=== PATIENT | female | born 1980 | race Caucasian/White ===

== ENCOUNTER 2018-08-04 16:03 | Outpatient (CLI) | payer MEDICAID, SELFPAY ==
[2018-08-04 17:26] LABS: TSH (W/Ref FT4) 4.43 uIU/mL (0.358-3.74)
[2018-08-04 17:48] LABS: FREE T4 1.01 ng/dL (0.76-1.46)
== END 2018-08-04 16:23 ==
PROVIDERS: PCP Nurse Practitioner Family; Visit Provider Nurse Practitioner Family
DX: C73 Malignant neoplasm of thyroid gland (principal)
CPT/HCPCS: 36415; 84439; 84443

== ENCOUNTER 2019-07-25 15:55 | Outpatient (CLI) | payer MEDICAID, SELFPAY ==
[2019-07-25 17:28] LABS: Anion Gap 8.9 mmol/L (3-11); BUN 16 mg/dL (7-18); CO2 26.1 mmol/L (21.0-32.0); CREATININE 0.85 mg/dL (0.55-1.02); Calcium 8.2 mg/dL (8.5-10.1); Calculated LDL 96 mg/dL; Chloride 104 mmol/L (98-107); Cholesterol 181 mg/dL (50-200); Glucose 92 mg/dL (70-100); HDL Cholesterol 46 mg/dL (40-60); Sodium 139 mmol/L (136-145); TSH (W/Ref FT4) 0.02 uIU/mL (0.36-3.74); Triglyceride 196 mg/dL (30-150)
[2019-07-25 17:45] LABS: FREE T4 1.36 ng/dL (0.76-1.46)
== END 2019-07-25 16:15 ==
PROVIDERS: PCP Nurse Practitioner Family; Visit Provider Nurse Practitioner Family
DX: C73 Malignant neoplasm of thyroid gland (principal); Z13.220 Encounter for screening for lipoid disorders; Z13.1 Encounter for screening for diabetes mellitus
CPT/HCPCS: 36415; 80048; 80061; 84439; 84443

== ENCOUNTER 2020-10-11 10:41 | Outpatient (REF) | payer OTHER, SELFPAY ==
[2020-10-11 20:38] LABS: HCT 41.6 % (36.0-46.0); HGB 14.2 g/dL (11.2-15.7); MCH 30.7 pg (27.0-33.0); MCHC 34.1 % (32.0-36.0); MPV 9.7 fL (8.0-11.0); Platelet Count 283 10^3/uL (130-400); RBC 4.62 10^6/uL (3.93-5.22); RDW 11.7 % (11.7-14.6); RDW-SD 38.5 fL
[2020-10-11 20:50] LABS: Anion Gap 7.8 mmol/L (3-11); BUN 16 mg/dL (7-18); CO2 25.2 mmol/L (21.0-32.0); CREATININE 0.85 mg/dL (0.55-1.02); Calcium 8.5 mg/dL (8.5-10.1); Chloride 105 mmol/L (98-107); Glucose 93 mg/dL (74-106); Potassium 4.3 mmol/L (3.5-5.1); Sodium 138 mmol/L (136-145); TSH (W/Ref FT4) 0.01 uIU/mL (0.36-3.74)
[2020-10-11 21:15] LABS: Vitamin D 25 Total 37.1 ng/ml (30-100)
[2020-10-11 21:16] LABS: FREE T4 2.09 ng/dL (0.76-1.46)
[2020-10-11 21:27] LABS: Calculated LDL 144 mg/dL (<100); Cholesterol 205 mg/dL (<200); HDL Cholesterol 52 mg/dL (40-60); Triglyceride 48 mg/dL (<150)
== END 2020-10-11 11:01 ==
LOC: NCHCN 10:41
PROVIDERS: PCP Nurse Practitioner Family; Visit Provider Nurse Practitioner Family
DX: E78.1 Pure hyperglyceridemia (principal); C73 Malignant neoplasm of thyroid gland; E55.9 Vitamin D deficiency, unspecified; Z00.00 Encounter for general adult medical examination without abnormal findings
CPT/HCPCS: 80048; 80061; 82306; 85027; 84439; 84443

== ENCOUNTER 2020-11-26 12:27 | Outpatient (REF) | payer OTHER, SELFPAY ==
[2020-11-26 20:13] LABS: TSH (W/Ref FT4) 0.02 uIU/mL (0.36-3.74)
[2020-11-26 23:05] LABS: FREE T4 1.44 ng/dL (0.76-1.46)
== END 2020-11-26 12:47 ==
LOC: NCHCN 12:27
PROVIDERS: PCP Nurse Practitioner Family; Visit Provider Nurse Practitioner Family
DX: C73 Malignant neoplasm of thyroid gland (principal)
CPT/HCPCS: 84439; 84443

== ENCOUNTER 2021-01-07 11:58 | Outpatient (REF) | payer OTHER, SELFPAY ==
[2021-01-07 13:14] LABS: Bilirubin Negative (Negative); Blood Negative (Negative); Clarity Clear (Clear); Glucose Negative (Negative); Ketones Negative (Negative); Leukocyte Esterase Trace (Negative); Nitrite Negative (Negative); Urobilinogen 0.2 EU/dL (Up TO 0.2)
[2021-01-07 13:24] LABS: Bacteria Few HPF (Negative); C & S Indicated? C&S Done As Ordered; Casts Negative LPF (Negative); Crystals Negative HPF (Negative); Epithelial Cells Few HPF (Negative); Mucus Negative (Negative); WBC 20-50 HPF (0-5)
[2021-01-09 10:02] LABS: HIV-1/2 Ag & Ab Screen Negative (Negative)
[2021-01-09 10:38] LABS: Syphilis Serology (RPR) Negative (Negative)
[2021-01-09 14:20] LABS: Chlamydia Result Negative (Negative); GC Result Negative (Negative)
[2021-01-10 10:41] LABS: HSV Type 1 Ab, IgG Negative (Negative); HSV Type 2 Ab, IgG Negative (Negative)
== END 2021-01-07 11:59 | disposition home or self-care (01) ==
LOC: NCHCN 11:58
PROVIDERS: PCP Nurse Practitioner Family; Visit Provider Nurse Practitioner Family
DX: N89.8 Other specified noninflammatory disorders of vagina (principal); R30.0 Dysuria; R21 Rash and other nonspecific skin eruption; Z11.3 Encounter for screening for infections with a predominantly sexual mode of transmission; Z11.4 Encounter for screening for human immunodeficiency virus [HIV]; Z11.59 Encounter for screening for other viral diseases; A60.00 Herpesviral infection of urogenital system, unspecified
CPT/HCPCS: 87389; 87491; 87591; 81003; 81015; 86592; 86695; 86696; 87086; 87480; 87510; 87660

== ENCOUNTER 2021-01-21 16:41 | Outpatient (REF) | payer OTHER, SELFPAY ==
[2021-01-23 13:49] LABS: HSV 1 DNA Result Negative (Negative); HSV 2 DNA Result Negative (Negative)
== END 2021-01-21 16:42 | disposition home or self-care (01) ==
LOC: LBN 16:41
PROVIDERS: PCP Nurse Practitioner Family; Visit Provider Nurse Practitioner Family
DX: N90.9 Noninflammatory disorder of vulva and perineum, unspecified (principal); Z11.59 Encounter for screening for other viral diseases
CPT/HCPCS: 87529

== ENCOUNTER 2021-11-06 18:58 | Outpatient (REF) | payer OTHER, SELFPAY ==
[2021-11-06 15:03] LABS: TSH (W/Ref FT4) 16.47 uIU/mL (0.36-3.74)
[2021-11-06 16:07] LABS: FREE T4 0.99 ng/dL (0.76-1.46)
== END 2021-11-06 18:59 | disposition home or self-care (01) ==
LOC: LBN 18:58
PROVIDERS: PCP Nurse Practitioner Family; Visit Provider Physician Assistant Medical
DX: C73 Malignant neoplasm of thyroid gland (principal)
CPT/HCPCS: 84439; 84443

== ENCOUNTER 2021-12-01 18:16 | Outpatient (REF) | payer OTHER, SELFPAY ==
[2021-12-01 16:28] LABS: HCT 42.9 % (36.0-46.0); HGB 13.7 g/dL (11.2-15.7); MCHC 31.9 % (32.0-36.0); MCV 97.1 fL (80-95); Platelet Count 257 10^3/uL (130-400); RBC 4.42 10^6/uL (3.93-5.22); RDW 12.1 % (11.7-14.6); RDW-SD 43.8 fL; WBC 8.83 10^3/uL (4.4-10.8)
[2021-12-01 17:01] LABS: ALT 31 U/L (14-59); AST 21 U/L (15-37); Albumin 4.3 g/dL (3.4-5.0); Alkaline Phosphatase 38 U/L (46-116); Anion Gap 11.2 mmol/L (3-11); BUN 19 mg/dL (7-18); Bilirubin, Total 0.3 mg/dL (0.2-1.0); CO2 25.8 mmol/L (21.0-32.0); Calcium 8.6 mg/dL (8.5-10.1); Calculated LDL 171 mg/dL (<100); Chloride 101 mmol/L (98-107); Cholesterol 245 mg/dL (<200); Glucose 77 mg/dL (74-106); HDL Cholesterol 60 mg/dL (40-60); Potassium 4.3 mmol/L (3.5-5.1); Sodium 138 mmol/L (136-145); Total Protein 7.3 g/dL (6.4-8.2); Triglyceride 73 mg/dL (<150)
[2021-12-01 22:02] LABS: CRP, High Sensitivity 0.84 mg/L (See Note)
[2021-12-04 09:45] LABS: Insulin 3.8 uIU/mL (<29.0)
== END 2021-12-01 18:17 | disposition home or self-care (01) ==
LOC: NCHCN 18:16
PROVIDERS: PCP Nurse Practitioner Family; Visit Provider Nurse Practitioner Family
DX: E78.5 Hyperlipidemia, unspecified (principal); E07.9 Disorder of thyroid, unspecified; Z00.00 Encounter for general adult medical examination without abnormal findings
CPT/HCPCS: 80053; 80061; 85027; 86141; 83525

== ENCOUNTER 2022-12-01 18:53 | Outpatient (REF) | payer OTHER, SELFPAY ==
[2022-12-01 16:20] LABS: Anion Gap 11.6 mmol/L (3-11); BUN 17 mg/dL (7-18); CO2 24.4 mmol/L (21.0-32.0); CREATININE 0.9 mg/dL (0.55-1.02); Calcium 8.5 mg/dL (8.5-10.1); Calculated LDL 196 mg/dL (<100); Chloride 104 mmol/L (98-107); Cholesterol 274 mg/dL (<200); Estimated GFR 81.35 (mL/min/1.73m2); Glucose 98 mg/dL (74-106); HDL Cholesterol 61 mg/dL (40-60); Potassium 4.3 mmol/L (3.5-5.1); Sodium 140 mmol/L (136-145); TSH (W/Ref FT4) 2.62 uIU/mL (0.36-3.74); Triglyceride 89 mg/dL (<150)
== END 2022-12-01 18:54 | disposition home or self-care (01) ==
LOC: NCHCN 18:53
PROVIDERS: PCP Nurse Practitioner Family; Visit Provider Nurse Practitioner Family
DX: E07.9 Disorder of thyroid, unspecified (principal); E78.5 Hyperlipidemia, unspecified; Z13.228 Encounter for screening for other metabolic disorders
CPT/HCPCS: 80048; 80061; 84443

== ENCOUNTER 2023-11-19 03:34 | Outpatient (CLI) | payer OTHER, SELFPAY ==
[2023-11-19 08:59] LABS: ALT 26 U/L (14-59); AST 17 U/L (15-37); Albumin 3.6 g/dL (3.4-5.0); Alkaline Phosphatase 41 U/L (46-116); Anion Gap 9.8 mmol/L (3-11); BUN 18 mg/dL (7-18); Bilirubin, Total 0.4 mg/dL (0.2-1.0); CO2 24.2 mmol/L (21.0-32.0); Calcium 8.4 mg/dL (8.5-10.1); Calculated LDL 167 mg/dL (<100); Chloride 104 mmol/L (98-107); Cholesterol 244 mg/dL (<200); Estimated GFR 71.24 (mL/min/1.73m2); Glucose 102 mg/dL (74-106); HDL Cholesterol 65 mg/dL (40-60); Potassium 3.9 mmol/L (3.5-5.1); Sodium 138 mmol/L (136-145); TSH 0.51 uIU/mL (0.36-3.74); Total Protein 7.2 g/dL (6.4-8.2); Triglyceride 62 mg/dL (<150); Vitamin B12 989 pg/mL (193-986)
[2023-11-19 09:11] LABS: Vitamin D 25 Total 42.3 ng/mL (30-100)
[2023-11-19 09:19] LABS: FREE T4 1.35 ng/dL (0.76-1.46)
== END 2023-11-19 03:35 | disposition home or self-care (01) ==
LOC: LBO 03:35
PROVIDERS: PCP Nurse Practitioner Family; Visit Provider Nurse Practitioner Family
DX: C73 Malignant neoplasm of thyroid gland (principal); E55.9 Vitamin D deficiency, unspecified; E78.5 Hyperlipidemia, unspecified; Z86.2 Personal history of diseases of the blood and blood-forming organs and certain disorders involving the immune mechanism; Z13.228 Encounter for screening for other metabolic disorders
CPT/HCPCS: 80053; 80061; 82306; 82607; 84439; 84443

== ENCOUNTER 2024-04-04 15:46 | Outpatient (REF) | payer OTHER, SELFPAY ==
[2024-04-05 19:54] LABS: FSH 10.3 mIU/mL (See Note)
== END 2024-04-04 15:47 | disposition home or self-care (01) ==
LOC: NCHCN 15:46
PROVIDERS: Visit Provider Nurse Practitioner Family
DX: N91.0 Primary amenorrhea (principal)
CPT/HCPCS: 83001

== ENCOUNTER 2024-05-28 06:48 | Emergency (ER) | payer OTHER, SELFPAY ==
[2024-05-28 07:12] VITALS: BP 148/95; O2SAT 100
--- NOTE | 2024-05-28 07:15 | DI.RAD_ITS ---
Exam(s) XR HAND LT COMPLETE EXAM: XR HAND LT COMPLETE CLINICAL HISTORY: Left hand wound. TECHNIQUE: 2D digital imaging was performed. COMPARISON: No exams were available for comparison FINDINGS: 3 views There is acute lung truly orientated fracture through the head-neck of the thumb metacarpal. This ex tending to the margin of the articular surface of the metacarpophalangeal joint. Mild displacement. No radiopaque foreign body. Some overlying bandage material is noted. No other fractures identifie d in the hand. IMPRESSION: Mildly displaced lung to truly orientated fracture of the head-neck of the thumb metacarpal. Probabl e intra-articular involvement. DATA REPOSITORY: RADIATION DOSE DELIVERED:
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
--- NOTE | 2024-05-28 08:36 | DI.VRAD_ITS ---
PROCEDURE INFORMATION: Exam: XR Left Hand Exam date and time: 05/28/2024 8:02 AM Age: 43 years old Clinical indication: Other: Left hand wound TECHNIQUE: Imaging protocol: Radiologic exam of the left hand. Views: 3 or more views. COMPARISON: No relevant prior studies available. FINDINGS: Bones/joints: There is an acute, mildly displaced, vertically oriented fracture through the radial aspect of the 1st metacarpal, including its neck and head, extending to the margin of the articular surface. No other fracture is identified. The joint spaces are normally aligned. Soft tissues: There is associated soft tissue swelling about the base of the thumb with overlying bandage. No other radiopaque foreign body is identified. IMPRESSION: Acute, mildly displaced, vertically oriented fracture through the radial aspect of the 1st metacarpal. No radiopaque foreign body other than overlying bandage identified. Dictated and Authenticated by: Miguel Escamilla MD. Ordering:MEME Grimm MD
[2024-05-28] MEDS: cefTRIAXone 2 GM VIAL IM (09:05)
[2024-05-28 09:12] VITALS: BP 127/84; PULSE 88; RESP 18; TEMP 36.8; O2SAT 99
[2024-05-28] MEDS: Acetaminophen 500 MG TAB 1000 MG PO (09:16)
[2024-05-28] MEDS: Ibuprofen 600 MG TAB PO (09:18)
--- NOTE | 2024-05-28 10:00 | W.EDPROG ---
Date of service: 05/28/24 Time of Service: 10:02 Medical Decision Making Quality:SDOH Health Related Social Needs: No Data to Display Procedures Orthopedic Splinting/Casting Injury #1: Side: left Upper Extremity Injury Location: finger Upper Extremity Immobilizer: thumb spica Additional Comments: Neurovascularly intact pre and postprocedure Discharge Plan Disposition Patient Disposition: Home Discharge Details Clinical Impression: Fracture of metacarpal base of left hand, open, Laceration of left hand Primary Care Provider: Unknown,Unknown ED Provider: Alfa Hernandez [place] Meds and New Rx's Prescriptions: New cephalexin 500 mg capsule 500 mg PO QID 3 Days Qty: 12 0RF Continued medroxyprogesterone [Depo-Provera] 150 mg/mL syringe 150 mg IM ONCE Qty: 1 0RF Depo-Provera 400 mg/mL suspension 400 mg IM ONCE Qty: 1 0RF metronidazole 500 mg tablet 2,000 mg PO ONCE Qty: 4 0RF medroxyprogesterone [Depo-Provera] 150 mg/mL suspension 150 mg IM Q 12 WEEKS Qty: 1 3RF calcium carbonate-vit D3-min 1 EACH tablet,chewable 1 ea PO DAILY levothyroxine 175 mcg tablet 175 mcg PO DAILY Discharge Instructions Additional Instructions: You are seen in the emergency department for your hand laceration which was closed and splinted. Please take these antibiotics as directed. Please return to the emergency department if you develop fevers or any worsening pain. For your pain please take medications as follows: 1. Take acetaminophen (Tylenol), 1,000 mg (two 500 mg tabs) every 6 hours [2. Take ibuprofen (Advil), 400 mg every 6 hours.] Referrals: Willi Cho MD [ [facility] STAFF PHYSICIAN] -
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
== END 2024-05-28 09:16 | disposition home or self-care (01) ==
PROVIDERS: Emergency Provider Emergency Medicine
DX: T74.11XA Adult physical abuse, confirmed, initial encounter; S62.25 Fracture of neck of first metacarpal bone; Z23 Encounter for immunization; Y07.010 Husband, current, perpetrator of maltreatment and neglect; X99.1XXA Assault by knife, initial encounter
CPT/HCPCS: 00123; 12042; 90471; 90715; 99284; 73130; J0696

== ENCOUNTER → 2024-06-07 12:54 | Outpatient (CLI) | payer OTHER, SELFPAY ==
--- NOTE | 2024-06-07 | DI.RAD_ITS ---
Exam(s) XR THUMB LT EXAM: XR THUMB LT CLINICAL HISTORY: M79.645 Pain in Left finger.thumb. TECHNIQUE: 2D digital imaging was performed. COMPARISON: No exams were available for comparison FINDINGS: 3 views There is a displaced fracture of the dorsal lateral aspect of the head of the thumb metacarpal. The fracture fragment measures 8 by 4 mm and is displaced proximally by 1.8 mm. There is no dislocation of the thumb metacarpophalangeal joint. Other articulations of the thumb appear unremarkable. No os seous lesions. There is no radiopaque foreign body. IMPRESSION: Mildly displaced fracture of the dorsal lateral aspect of the head of the 1st metacarpal. DATA REPOSITORY: RADIATION DOSE DELIVERED:
== END ==
PROVIDERS: Visit Provider Physician Assistant Medical
DX: M79.645 Pain in left finger(s) (principal); S62.232A Other displaced fracture of base of first metacarpal bone, left hand, initial encounter for closed fracture; X58.XXXA Exposure to other specified factors, initial encounter
CPT/HCPCS: 73140

== ENCOUNTER 2024-10-31 15:20 | Outpatient (REF) | payer BC, SELFPAY ==
[2024-10-31 20:43] LABS: Hemoglobin A1C 5.3 % (<5.7)
[2024-10-31 21:03] LABS: Calculated LDL 196 mg/dL (<100); Cholesterol 278 mg/dL (<200); FREE T4 1.35 ng/dL (0.76-1.46); HDL Cholesterol 69 mg/dL (40-60); TSH 2.51 uIU/mL (0.36-3.74); Triglyceride 68 mg/dL (<150); Vitamin B12 1356 pg/mL (193-986)
[2024-10-31 21:04] LABS: C-Reactive Protein < 0.50 mg/dL (<or=0.5)
[2024-11-03 08:47] LABS: Insulin 3.3 uIU/mL (<29.0)
== END 2024-10-31 15:21 | disposition home or self-care (01) ==
LOC: NCHCN 15:20
PROVIDERS: PCP Nurse Practitioner Family; Visit Provider Nurse Practitioner Family
DX: Z13.220 Encounter for screening for lipoid disorders (principal); E55.9 Vitamin D deficiency, unspecified; Z83.3 Family history of diabetes mellitus; M25.551 Pain in right hip; E03.9 Hypothyroidism, unspecified
CPT/HCPCS: 80061; 82306; 82607; 83036; 83525; 84439; 84443; 86140